=== PATIENT | female | born 1950 | race Two or more races ===

== ENCOUNTER 2016-06-05 17:43 | Inpatient (IN) | payer MEDICARE ==
[~2016-06-05] VITALS: Ht 157.5 cm; Wt 86.7 kg
[~2016-06-05 17:43] MED LIST: ONDANSETRON 2MG/ML, 2ML ONE; PROPOFOL 10 MG/ML, 20ML ONE; ROCURONIUM 10 MG/ML ONE; SUCCINYLCHOLINE 20 MG/ML, 10ML ONE
[2016-06-05] MEDS ORDERED: ONDANSETRON 2MG/ML, 2ML ONE (18:45)
[2016-06-05] MEDS ORDERED: FAMOTIDINE 20 MG/2 ML ONE (18:45)
[2016-06-05 18:55] LABS: HEMOGLOBIN 13.5 g/dL (11.7-16.4)
[2016-06-05] MEDS ORDERED: SODIUM CHLORIDE FLUSH 10ML SYR IVF ONE (19:00)
[2016-06-05] MEDS ORDERED: SODIUM CHLORIDE 0.9% 1,000ML IVBOLUS ONE (19:00)
[2016-06-05] MEDS ORDERED: ONDANSETRON 2MG/ML, 2ML IVPush ONE (19:00)
[2016-06-05] MEDS ORDERED: FAMOTIDINE 20 MG/2 ML IVP ONE (19:00)
[2016-06-05 19:04] LABS: ASPARTATE AMINO TRANSFERASE 14 U/L (15-37); BLOOD UREA NITROGEN 10 mg/dL (7-18)
[2016-06-05] MEDS ORDERED: CEFOTETAN PMX 1GM/50ML 50 ML IVPB ONE (19:30)
[2016-06-05] MEDS ORDERED: SODIUM CHLORIDE 0.9% 1,000 ML IV ONE (19:43)
[2016-06-05] MEDS ORDERED: CEFOTETAN PMX 1GM/50ML 50 ML ONE (19:44)
[2016-06-05] MEDS ORDERED: BUPIVACAINE/PF-EPI 0.5% 1:200K ONE (19:58)
[2016-06-05] MEDS ORDERED: INSULIN REGULAR 100 UNITS/ML, 3ML VIAL SQ-INSULIN ONE (20:00)
[2016-06-05] MEDS ORDERED: ATOR10TA9 PO (20:14)
[2016-06-05] MEDS ORDERED: INSU100V8 SQ (20:14)
[2016-06-05] MEDS ORDERED: METF10002 PO (20:14)
[2016-06-05] MEDS ORDERED: SODIUM CHLORIDE FLUSH 10ML SYR IVF PRN (20:30)
[2016-06-05] MEDS ORDERED: FENTANYL PF 250 MCG/5ML ONE (20:32)
[2016-06-05] MEDS ORDERED: MIDAZOLAM 1 MG/ML, 2ML ONE (20:32)
[2016-06-05] MEDS ORDERED: OXYcodone 5 MG/5 ML ORAL.SOL UDC PO PRN (21:00)
[2016-06-05] MEDS ORDERED: ACETAMINOPHEN 325 MG TABLET PO PRN (21:00)
[2016-06-05] MEDS ORDERED: ALBUTEROL/IPRATROPIUM 2.5MG/0.5MG, 3 ML NPPB PRN (21:00)
[2016-06-05] MEDS ORDERED: INSULIN SINGLE DOSE, ER SQ-INSULIN ONE (21:00)
[2016-06-05] MEDS ORDERED: METOPROLOL 1 MG/ML, 5ML IV PRN (21:00)
[2016-06-05] MEDS ORDERED: PROMETHAZINE 25 MG/ML, 1ML IV PRN (21:00)
[2016-06-05] MEDS ORDERED: HYDROmorphone 1 MG/ML, 1ML IV PRN (21:00)
[2016-06-05] MEDS ORDERED: hydrALAzine 20 MG/ML, 1ML IV PRN ×2 (21:00→22:30)
[2016-06-05] MEDS ORDERED: DIPHENHYDRAMINE 25 MG CAPSULE PO PRN (22:30)
[2016-06-05] MEDS: INSULIN ASPART 100 UNITS/ML, PEN SQ-INSULIN SCH (22:30)
[2016-06-05] MEDS ORDERED: ONDANSETRON 2MG/ML, 2ML IVPush PRN (22:30)
[2016-06-05] MEDS ORDERED: MORPHINE SULFATE 4 MG/ML, 1ML IVPush PRN (22:30)
[2016-06-05] MEDS ORDERED: CEFOTETAN PMX 1GM/50ML 50 ML IVPB SCH (22:30)
[2016-06-05] MEDS ORDERED: FENTANYL PF 100 MCG/2ML ONE (22:33)
[2016-06-05] MEDS ORDERED: ACETAMINOPHEN 650 MG/20.3 ML UDC ONE (22:33)
[2016-06-05] MEDS ORDERED: METOPROLOL 1 MG/ML, 5ML ONE (22:34)
[2016-06-05] MEDS ORDERED: OXYcodone 5 MG/5 ML ORAL.SOL UDC ONE (22:34)
[2016-06-05] MEDS ORDERED: ACETAMINOPHEN 325 MG TABLET ONE (22:34)
[2016-06-05] MEDS: FENTANYL PF 100 MCG/2ML IV PRN ×2 (22:47→23:01)
[2016-06-06 03:41] VITALS: BP 94/58
[2016-06-06] MEDS: D5%-0.45% NACL 1,000 ML IV SCH ×2 (05:13→20:00)
[2016-06-06 05:58] LABS: HEMOGLOBIN 11.8 g/dL (11.7-16.4)
[2016-06-06 06:16] LABS: ASPARTATE AMINO TRANSFERASE 122 U/L (15-37); BLOOD UREA NITROGEN 8 mg/dL (7-18)
[2016-06-06 06:49] VITALS: BP 95/56
[2016-06-06] MEDS ORDERED: PROPOFOL 10 MG/ML, 20ML ONE (09:01)
[2016-06-06] MEDS ORDERED: ROCURONIUM 10 MG/ML ONE (09:01)
[2016-06-06] MEDS ORDERED: SUCCINYLCHOLINE 20 MG/ML, 10ML ONE (09:01)
[2016-06-06] MEDS ORDERED: ONDANSETRON 2MG/ML, 2ML ONE (09:01)
[2016-06-06] MEDS: CEFOTETAN PMX 1GM/50ML 50 ML IVPB SCH ×2 (09:18→20:24)
[2016-06-06] MEDS: INSULIN ASPART 100 UNITS/ML, PEN SQ-INSULIN SCH ×4 (09:22→20:25)
[2016-06-06] MEDS: LISINOPRIL 5 MG TABLET PO SCH (11:30)
[2016-06-06 12:00] VITALS: BP 104/59
[2016-06-06] MEDS: GLIMEPIRIDE 4 MG TABLET PO SCH ×2 (12:21→20:25)
[2016-06-06] MEDS: metFORMIN 500 MG TABLET PO SCH (15:55)
[2016-06-06 16:02] VITALS: BP 96/58
[2016-06-06 18:00] VITALS: BP 106/63
[2016-06-06 20:39] VITALS: BP 113/69
[2016-06-06] MEDS ORDERED: SIMVASTATIN 10 MG TABLET PO SCH (21:00)
[2016-06-06] MEDS ORDERED: ENOXAPARIN 40 MG/0.4 ML SQ SCH (21:00)
[2016-06-07 04:01] VITALS: BP 120/70
[2016-06-07 05:48] LABS: HEMOGLOBIN 10.8 g/dL (11.7-16.4)
[2016-06-07 06:04] LABS: BLOOD UREA NITROGEN 9 mg/dL (7-18)
[2016-06-07 06:12] LABS: ASPARTATE AMINO TRANSFERASE 84 U/L (15-37)
[2016-06-07 06:53] VITALS: BP 122/75
[2016-06-07] MEDS: LISINOPRIL 5 MG TABLET PO SCH (08:14)
[2016-06-07] MEDS: GLIMEPIRIDE 4 MG TABLET PO SCH (08:14)
[2016-06-07] MEDS: metFORMIN 500 MG TABLET PO SCH (08:15)
[2016-06-07] MEDS: INSULIN ASPART 100 UNITS/ML, PEN SQ-INSULIN SCH ×2 (08:15→11:43)
[2016-06-07] MEDS ORDERED: FENOFIBRATE 145 MG TABLET PO SCH (09:00)
[2016-06-07 12:06] VITALS: BP_SYST 106; BP_SYST 90; BP_DIAS 54; BP_DIAS 67
[2016-06-07] MEDS ORDERED: HYDR-882 PO (14:58)
[2016-06-07] MEDS ORDERED: ONDA4TAB7 PO (14:59)
[2016-06-07 15:00] VITALS: BP 108/66
[2016-06-07] MEDS ORDERED: FENO145T32 PO (15:05)
[2016-06-07] MEDS ORDERED: GLIM4TAB2 PO (15:05)
[2016-06-07] MEDS ORDERED: LISI5TAB7 PO (15:06)
== END 2016-06-07 16:00 | disposition home or self-care (01) | DRG 854 ==
LOC: ED 19:56 → EDIP 20:01 → 4NOR 23:21
PROVIDERS: ADMIT Surgery; ATTEND Surgery
PROC: 0FT44ZZ Resection of Gallbladder, Percutaneous Endoscopic Approach (ICD-10-PCS; principal; 2016-06-05 21:00)
DX: A41.9 Sepsis, unspecified organism (principal); K80.00 Calculus of gallbladder with acute cholecystitis without obstruction; K66.0 Peritoneal adhesions (postprocedural) (postinfection); I10 Essential (primary) hypertension; E78.5 Hyperlipidemia, unspecified; E66.9 Obesity, unspecified; E11.9 Type 2 diabetes mellitus without complications; Z79.4 Long term (current) use of insulin; Z68.35 Body mass index [BMI] 35.0-35.9, adult; K82.8 Other specified diseases of gallbladder
CPT/HCPCS: 36415; 71010; 76700; 80053; 82962; 83690; 85025; 85610; 85730; 88304; 93005; 96361; 96365; 96375; J1650; J1815; J2250; J2405; J2704; J3010; J0330; J7030; S0028; S0074

== ENCOUNTER 2019-12-19 15:46 | Outpatient (CLI) | payer MEDICARE ==
[~2019-12-19 15:46] MED LIST changes: +ATOR10TA9 PO; +FENO145T32 PO; +GLIM4TAB8 PO; +HYDR-3653 PO; +INSU100V8 SQ; +LISI5TAB7 PO; +METF10002 PO; +ONDA4TAB7 PO; -ONDANSETRON 2MG/ML, 2ML ONE; -PROPOFOL 10 MG/ML, 20ML ONE; -ROCURONIUM 10 MG/ML ONE; -SUCCINYLCHOLINE 20 MG/ML, 10ML ONE
== END 2019-12-19 23:59 | disposition home or self-care (01) ==
LOC: CFH 15:46
PROVIDERS: ATTEND Student in an Organized Health Care Education/Training Program
DX: Z12.31 Encounter for screening mammogram for malignant neoplasm of breast (principal)
CPT/HCPCS: 77067

== ENCOUNTER → 2020-09-01 | Outpatient (CLI) | payer MEDICARE | END | disposition home or self-care (01) | LOC: RAD 14:57 | PROVIDERS: ATTEND Nurse Practitioner | DX: M47.812 Spondylosis without myelopathy or radiculopathy, cervical region (principal); M50.322 Other cervical disc degeneration at C5-C6 level; M51.34 Other intervertebral disc degeneration, thoracic region; M25.78 Osteophyte, vertebrae | CPT/HCPCS: 72050; 72072 ==